=== PATIENT | male | born 1955 | race Caucasian/White ===

== ENCOUNTER 2018-02-16 08:51 | Outpatient (CLI) | payer BC, SELFPAY ==
[2018-02-16 11:51] LABS: Anion Gap 12.7 mmol/L (3-11); BUN 10 mg/dL (7-18); CO2 24.3 mmol/L (21.0-32.0); CREATININE 0.84 mg/dL (0.70-1.30); Calcium 8.7 mg/dL (8.5-10.1); Chloride 104 mmol/L (98-107); Glucose 97 mg/dL (70-100); Potassium 4.2 mmol/L (3.5-5.1); Sodium 141 mmol/L (136-145)
[2018-02-19 14:44] LABS: Hepatitis C Ab w Rflx HCV PCR Negative (NEGAT)
== END 2018-02-16 09:11 ==
PROVIDERS: PCP Specialist/Technologist Athletic Trainer; Visit Provider Family Medicine
DX: Z11.59 Encounter for screening for other viral diseases (principal); J44.9 Chronic obstructive pulmonary disease, unspecified
CPT/HCPCS: 36415; 80048; 86803

== ENCOUNTER 2019-03-07 09:46 | Outpatient (REF) | payer BC, SELFPAY ==
[2019-03-07 22:28] LABS: Hemoglobin A1C 5.7 % (4.5-6.2)
[2019-03-07 22:37] LABS: ALT 28 U/L (16-63); AST 19 U/L (15-37); Albumin 3.7 g/dL (3.4-5.0); Alkaline Phosphatase 105 U/L (46-116); Anion Gap 8.8 mmol/L (3-11); BUN 14 mg/dL (7-18); Bilirubin, Total 0.3 mg/dL (0.2-1.0); CO2 27.2 mmol/L (21.0-32.0); CREATININE 1.04 mg/dL (0.70-1.30); Calcium 8.7 mg/dL (8.5-10.1); Calculated LDL 105 mg/dL; Chloride 105 mmol/L (98-107); Cholesterol 194 mg/dL (50-200); Glucose 107 mg/dL (70-100); HDL Cholesterol 45 mg/dL (40-60); Potassium 4.2 mmol/L (3.5-5.1); Sodium 141 mmol/L (136-145); Triglyceride 224 mg/dL (30-150)
== END 2019-03-07 10:06 ==
LOC: NCHCO 09:46
PROVIDERS: PCP Specialist/Technologist Athletic Trainer; Visit Provider Specialist/Technologist Athletic Trainer
DX: Z00.00 Encounter for general adult medical examination without abnormal findings (principal); Z13.1 Encounter for screening for diabetes mellitus; Z13.220 Encounter for screening for lipoid disorders; Z13.228 Encounter for screening for other metabolic disorders
CPT/HCPCS: 80053; 80061; 83036

== ENCOUNTER 2020-03-04 09:45 | Outpatient (REF) | payer BC, SELFPAY ==
[2020-03-04 20:27] LABS: Calculated LDL 121 mg/dL (<100); Cholesterol 201 mg/dL (<200); HDL Cholesterol 48 mg/dL (40-60); Triglyceride 162 mg/dL (<150)
[2020-03-04 20:43] LABS: Hemoglobin A1C 5.4 % (<5.7)
== END 2020-03-04 10:05 ==
LOC: NCHCN 09:45
PROVIDERS: PCP Specialist/Technologist Athletic Trainer; Visit Provider Nurse Practitioner Family
DX: R73.03 Prediabetes (principal); E78.00 Pure hypercholesterolemia, unspecified
CPT/HCPCS: 80061; 83036

== ENCOUNTER 2020-03-17 01:05 | Outpatient (CLI) | payer BC, SELFPAY ==
--- NOTE | 2020-03-17 07:17 | DI.CTLCSR_ITS ---
EXAM: CT CHEST LUNG CANCER SCREEN CLINICAL HISTORY: SMOKER, F17.210, SCREENING FOR LUNG CA TECHNIQUE: Imaging Protocol: Axial computed tomography images with coronal and sagittal reformatted images were created and reviewed COMPARISON: No exams were available for comparison FINDINGS: Tracheobronchial tree: Patent where visualized. Mediastinum and Jhoana: No dominant adenopathy or fluid collection. Pulmonary parenchyma: No consolidation or dominant measurable mass. Moderate emphysematous changes gr eatest in the upper lobes. Biapical scarring. Lung Nodules: Several tiny, less than 4 millimeter nodules are seen peripherally in both upper and l ower lobes bilaterally. Pleura: No effusion or pneumothorax. Heart: The heart is not dilated. No coronary artery calcifications are seen. Aorta: Thoracic aorta non-dilated. Upper abdomen: Unremarkable. Status post cholecystectomy. Bones: Degenerative disc changes. Soft Tissues: Unremarkable. IMPRESSION: Emphysematous changes and upper lobe scarring. Multiple less than 4 millimeter peripheral nodules bi laterally. Lung RADS Cat 2 - Benign Appearance / Behavior: Nodules with a very low likelihood of becoming a clin ically active cancer due to size or lack of growth modifier S Lung-RADS 1.0 CATEGORIES: Category 0 - Prior chest CT exam(s) being located for comparison. Category 1 - Annual screening in 12 months. No nodules or definitely benign nodules. Category 2 - Annual screening in 12 months. Benign appearance. Nodules with low likelihood of becomin g active cancer. Category 3 - 6-month follow-up. Probably benign. Short-term follow-up suggested. Nodules with low lik elihood of becoming active cancer. Category 4A - 3-month follow-up and CT/PET if >8 mm in size. Suspicious finding. Findings which requi re additional testing. Category 4B - Findings which require additional testing and tissue sampling. Suspicious finding. C Added to Any of the Above - History of prior lung cancer screening. S Added to Any of the Above - Significant unexpected other finding. RADIATION DOSE DELIVERED: 108.8mGy.cm Total DLP DATA REPOSITORY: All CT scans at this facility are submitted to the National Radiology Data Registry (NRDR) Dose Index Registry (DIR) with the [employer] (ACR). RADIATION OPTIMIZATION: All CT scans at this facility use at least one of these dose optimization te chniques: automated exposure control; mA and/or kV adjustment per patient size (includes targeted exa ms where dose is matched to clinical indication); or iterative reconstruction.
== END 2020-03-17 01:25 ==
PROVIDERS: PCP Nurse Practitioner Family; Visit Provider Nurse Practitioner Family
DX: Z12.2 Encounter for screening for malignant neoplasm of respiratory organs (principal); F17.210 Nicotine dependence, cigarettes, uncomplicated; R91.8 Other nonspecific abnormal finding of lung field
CPT/HCPCS: G0297

== ENCOUNTER 2020-05-11 10:01 | Outpatient (REF) | payer BC, SELFPAY ==
[2020-05-11 20:10] LABS: Calculated LDL 95 mg/dL (<100); Cholesterol 185 mg/dL (<200); HDL Cholesterol 57 mg/dL (40-60); Triglyceride 166 mg/dL (<150)
== END 2020-05-11 10:21 ==
LOC: NCHCN 10:01
PROVIDERS: PCP Nurse Practitioner Family; Visit Provider Nurse Practitioner Family
DX: E78.00 Pure hypercholesterolemia, unspecified (principal)
CPT/HCPCS: 80061

== ENCOUNTER 2020-09-22 02:54 | Outpatient (CLI) | payer BC, SELFPAY ==
[2020-09-22] MEDS: Methacholine 100 MG VIAL IH (12:17)
[2020-09-22] MEDS: Albuterol HFA 18 GM 200 PUFF INH IH (12:18)
[2020-09-22] MEDS: Inhaler, Assist Device 1 EACH MC (12:18)
--- NOTE | 2020-09-28 15:52 | W.PFT ---
Date of service: 09/22/20 Time of Service: 10:05 Pulmonary Function Test Result Interpretation Spirometry: Mild obstructive airways disease, no bronchodilator response Lung Volumes: No evidence of restriction Diffusion Capacity: Moderately reduced, which is mildly reduced when corrected to alveolar volume Airway Pressure: Normal Impression Mild obstructive airways disease with no significant bronchodilator response, this is associated with moderate diffusion defect Clinical Correlation therefore is recommended. Methacholine Challnege Test Date of Service Date of Service: 09/22/2020 Note After pulmonary function testing showing mild obstructive airways disease with moderate diffusion defect, methacholine challenge testing was carried out up to methacholine concentration of 16 mg/mL. At that concentration there was a 12% drop in FEV1. Impression Negative methacholine challenge test
== END 2020-09-22 02:55 | disposition home or self-care (01) ==
LOC: RT 02:55
PROVIDERS: PCP Nurse Practitioner Family; Visit Provider Nurse Practitioner Family
DX: J43.9 Emphysema, unspecified; R06.09 Other forms of dyspnea; F17.210 Nicotine dependence, cigarettes, uncomplicated; Z77.29 Contact with and (suspected) exposure to other hazardous substances
CPT/HCPCS: 94060; 94726; 94729; 95070; 94010; J7674

== ENCOUNTER 2020-10-12 11:33 | Outpatient (REF) | payer BC, SELFPAY ==
[2020-10-12 16:42] LABS: Anion Gap 10.4 mmol/L (3-11); BUN 15 mg/dL (7-18); CO2 25.6 mmol/L (21.0-32.0); CREATININE 1.1 mg/dL (0.70-1.30); Calcium 8.7 mg/dL (8.5-10.1); Chloride 107 mmol/L (98-107); Glucose 97 mg/dL (74-106); Potassium 4.3 mmol/L (3.5-5.1); Sodium 143 mmol/L (136-145)
== END 2020-10-12 11:34 | disposition home or self-care (01) ==
LOC: NCHCN 11:33
PROVIDERS: PCP Nurse Practitioner Family; Visit Provider Nurse Practitioner Family
DX: R73.03 Prediabetes (principal); F17.200 Nicotine dependence, unspecified, uncomplicated
CPT/HCPCS: 80048

== ENCOUNTER 2021-05-11 09:37 | Outpatient (REF) | payer BC, SELFPAY ==
[2021-05-11 15:21] LABS: Calculated LDL 109 mg/dL (<100); Cholesterol 198 mg/dL (<200); HDL Cholesterol 53 mg/dL (40-60); Triglyceride 182 mg/dL (<150)
== END 2021-05-11 09:38 | disposition home or self-care (01) ==
LOC: NCHCN 09:37
PROVIDERS: PCP Nurse Practitioner Family; Visit Provider Nurse Practitioner Family
DX: Z00.00 Encounter for general adult medical examination without abnormal findings (principal)
CPT/HCPCS: 80061

== ENCOUNTER → 2021-07-01 08:53 | Outpatient (BNVA) | payer MEDICARE, SELFPAY | PROVIDERS: PCP Nurse Practitioner Family; Referring Provider Nurse Practitioner Family; Visit Provider Physical Therapy Assistant | DX: K21.9 Gastro-esophageal reflux disease without esophagitis (principal); K22.89 Other specified disease of esophagus; Z12.11 Encounter for screening for malignant neoplasm of colon; Z80.0 Family history of malignant neoplasm of digestive organs; J44.9 Chronic obstructive pulmonary disease, unspecified | CPT/HCPCS: 99203 ==

== ENCOUNTER 2021-08-25 12:45 | Outpatient (REF) | payer MEDICARE, SELFPAY ==
[2021-08-25 12:19] LABS: BUN 23 mg/dL (7-18); CREATININE 0.9 mg/dL (0.70-1.30); Calcium 8.9 mg/dL (8.5-10.1); Chloride 104 mmol/L (98-107); Glucose 97 mg/dL (74-106); Potassium 4.5 mmol/L (3.5-5.1); Sodium 139 mmol/L (136-145)
== END 2021-08-25 12:46 | disposition home or self-care (01) ==
LOC: NCHCN 12:45
PROVIDERS: PCP Nurse Practitioner Family; Visit Provider Nurse Practitioner Family
DX: I10 Essential (primary) hypertension (principal)
CPT/HCPCS: 80048

== ENCOUNTER → 2022-05-31 02:07 | Outpatient (CLI) | payer MEDICARE, SELFPAY ==
--- NOTE | 2022-05-31 10:37 | DI.CTLCSR_ITS ---
Exam(s) CT CHEST LUNG CANCER SCREEN EXAM: CT CHEST LUNG CANCER SCREEN CLINICAL HISTORY: SMOKER F17.210, SCREENING FOR LUNG CANCER Z12.9. TECHNIQUE: Imaging Protocol: Low Dose Technique CONTRAST MATERIAL: None COMPARISON: CT CT CHEST LUNG CANCER SCREEN from 03/17/[address] CHEST LUNG CANCER SCREEN from 05/25/2021 FINDINGS: CHEST: LUNGS: There is continued stable appearance of the previously described tiny benign-appearing nodules in the lung cook. Some platelike atelectasis in the right lower lobe posterior basal segment is u nchanged. There are no pleural effusions. No new confluent infiltrates MEDIASTINUM: There is no obvious hilar nor mediastinal adenopathy. CARDIAC: Heart size is normal. There is no pericardial effusion.Caliber of the thoracic aorta is wit hin normal limits. OTHER: No adrenal masses. Gallbladder surgically absent. OSSEOUS: No fractures. No significant osseous lesions.. IMPRESSION: 1. Continued stable appearance of the previously described tiny bilateral lung nodules. No new focal pulmonary findings nor pleural effusions. 2. There is circumferential diffuse thickening of the wall of the esophagus throughout the mid and lo wer thirds. The wall of the esophagus measures 5 millimeters thick circumferentially. Recommend end oscopy in this has not already been. 3. Lung RADS Cat 2S - Benign Appearance / Behavior: Nodules with a very low likelihood of becoming a clinically active cancer due to size or lack of growth Esophagus findings as above. Recommend endoscopy. Lung-RADS 1.0 CATEGORIES: Category 0 - Prior chest CT exam(s) being located for comparison. Category 1 - Annual screening in 12 months. No nodules or definitely benign nodules. Category 2 - Annual screening in 12 months. Benign appearance. Nodules with low likelihood of becomin g active cancer. Category 3 - 6-month follow-up. Probably benign. Short-term follow-up suggested. Nodules with low lik elihood of becoming active cancer. Category 4A - 3-month follow-up and CT/PET if >8 mm in size. Suspicious finding. Findings which requi re additional testing. Category 4B - Findings which require additional testing and tissue sampling. Category 4X - Category 3 or 4 nodules with additional features or imaging findings that increases the suspicion of malignancy. Modifier S- Potentially clinically significant findings (non lung cancer) RADIATION DOSE DELIVERED: 97.82mGy.cm Total DLP DATA REPOSITORY: All CT scans at this facility are submitted to the National Radiology Data Registry (NRDR) Dose Index Registry (DIR) with the [employer] (ACR). RADIATION OPTIMIZATION: All CT scans at this facility use at least one of these dose optimization te chniques: automated exposure control; mA and/or kV adjustment per patient size (includes targeted exa ms where dose is matched to clinical indication); or iterative reconstruction.
== END ==
PROVIDERS: PCP Nurse Practitioner Family; Visit Provider Nurse Practitioner Family
DX: F17.210 Nicotine dependence, cigarettes, uncomplicated (principal); Z12.2 Encounter for screening for malignant neoplasm of respiratory organs; R91.8 Other nonspecific abnormal finding of lung field
CPT/HCPCS: 71271

== ENCOUNTER 2022-05-31 12:14 | Outpatient (REF) | payer MEDICARE, SELFPAY ==
[2022-05-31 16:20] LABS: ALT 21 U/L (16-63); AST 18 U/L (15-37); HDL Cholesterol 56 mg/dL (40-60); LDL CHOLESTEROL 100 mg/dL (<100)
[2022-05-31 16:41] LABS: Creatine Kinase 41 U/L (39-308)
== END 2022-05-31 12:15 | disposition home or self-care (01) ==
LOC: NCHCN 12:14
PROVIDERS: PCP Nurse Practitioner Family; Visit Provider Nurse Practitioner Family
DX: I10 Essential (primary) hypertension (principal); J43.9 Emphysema, unspecified; F17.200 Nicotine dependence, unspecified, uncomplicated
CPT/HCPCS: 82550; 83721; 83718; 84450; 84460

== ENCOUNTER 2022-08-29 10:23 | Outpatient (REF) | payer MEDICARE, SELFPAY ==
[2022-08-29 16:33] LABS: Anion Gap 8.5 mmol/L (3-11); BUN 19 mg/dL (7-18); CO2 24.5 mmol/L (21.0-32.0); CREATININE 1.2 mg/dL (0.70-1.30); Calcium 8.7 mg/dL (8.5-10.1); Chloride 106 mmol/L (98-107); Glucose 107 mg/dL (74-106); Potassium 4.5 mmol/L (3.5-5.1); Sodium 139 mmol/L (136-145)
== END 2022-08-29 10:24 | disposition home or self-care (01) ==
LOC: NCHCN 10:23
PROVIDERS: PCP Nurse Practitioner Family; Visit Provider Nurse Practitioner Family
DX: I10 Essential (primary) hypertension (principal)
CPT/HCPCS: 80048

== ENCOUNTER 2023-02-27 13:01 | Outpatient (REF) | payer MEDICARE, SELFPAY ==
[2023-02-27 18:20] LABS: ALT 26 U/L (16-63); AST 14 U/L (15-37); Albumin 3.5 g/dL (3.4-5.0); Alkaline Phosphatase 76 U/L (46-116); Anion Gap 10.3 mmol/L (3-11); BUN 16 mg/dL (7-18); Bilirubin, Total 0.3 mg/dL (0.2-1.0); CO2 24.7 mmol/L (21.0-32.0); CREATININE 0.7 mg/dL (0.70-1.30); Chloride 105 mmol/L (98-107); Estimated GFR 101.62 (mL/min/1.73m2); Glucose 129 mg/dL (74-106); HDL Cholesterol 65 mg/dL (40-60); LDL CHOLESTEROL 63 mg/dL (<100); Potassium 3.6 mmol/L (3.5-5.1); Sodium 140 mmol/L (136-145); Total Protein 6.9 g/dL (6.4-8.2)
[2023-02-27 19:14] LABS: Creatine Kinase 52 U/L (39-308)
== END 2023-02-27 13:02 | disposition home or self-care (01) ==
LOC: NCHCN 13:01
PROVIDERS: PCP Nurse Practitioner Family; Visit Provider Nurse Practitioner Family
DX: I10 Essential (primary) hypertension (principal); E78.00 Pure hypercholesterolemia, unspecified
CPT/HCPCS: 80053; 82550; 83721; 83718

== ENCOUNTER → 2023-06-02 01:45 | Outpatient (CLI) | payer MEDICARE, SELFPAY ==
--- NOTE | 2023-06-02 | DI.CTLCSR_ITS ---
Exam(s) CT CHEST LUNG CANCER SCREEN EXAM: CT CHEST LUNG CANCER SCREEN CLINICAL HISTORY: SCREENING FOR LUNG CA,CURRENT SMOKER, F17.210. TECHNIQUE: Imaging Protocol: Low Dose Technique CONTRAST MATERIAL: None COMPARISON: CT CT CHEST LUNG CANCER SCREEN from 05/31/2022 FINDINGS: CHEST: LUNGS: There is again noted continued stable appearance of the previously described tiny benign-appea ring nodules in the lung cook.. With some mild increase benign-appearing scarring in the posterior basal and medial basal segments of the right lower lobe. Also some decreasing platelike atelectasis in both lower lobes posterior basal segments. No pleural effusions. MEDIASTINUM: There is no obvious hilar nor mediastinal adenopathy. As previously described the wall of the esophagus is circumferentially thickened throughout its length.. CARDIAC: Heart size is normal. There is no pericardial effusion.Caliber of the thoracic aorta is wit hin normal limits. OTHER: Gallbladder surgically absent. OSSEOUS: No significant osseous lesions.No fractures.. IMPRESSION: 1. Continued stable appearance of the previously described tiny bilateral lung nodules. No new nodul es nor pleural effusions nor intrathoracic adenopathy. 2. Again noted is circumferential thickening of the esophagus wall throughout the mid and lower third s of the esophagus. Recommend endoscopy if this has not already been done. 3. Lung RADS Cat 2S- Benign Appearance / Behavior: Nodules with a very low likelihood of becoming a c linically active cancer due to size or lack of growth S= esophagus findings Lung-RADS 1.0 CATEGORIES: Category 0 - Prior chest CT exam(s) being located for comparison. Category 1 - Annual screening in 12 months. No nodules or definitely benign nodules. Category 2 - Annual screening in 12 months. Benign appearance. Nodules with low likelihood of becomin g active cancer. Category 3 - 6-month follow-up. Probably benign. Short-term follow-up suggested. Nodules with low lik elihood of becoming active cancer. Category 4A - 3-month follow-up and CT/PET if >8 mm in size. Suspicious finding. Findings which requi re additional testing. Category 4B - Findings which require additional testing and tissue sampling. Category 4X - Category 3 or 4 nodules with additional features or imaging findings that increases the suspicion of malignancy. Modifier S- Potentially clinically significant findings (non lung cancer) RADIATION DOSE DELIVERED: Total DLP DATA REPOSITORY: All CT scans at this facility are submitted to the National Radiology Data Registry (NRDR) Dose Index Registry (DIR) with the [employer] (ACR). RADIATION OPTIMIZATION: All CT scans at this facility use at least one of these dose optimization te chniques: automated exposure control; mA and/or kV adjustment per patient size (includes targeted exa ms where dose is matched to clinical indication); or iterative reconstruction.
== END ==
PROVIDERS: PCP Nurse Practitioner Family; Visit Provider Nurse Practitioner Family
DX: F17.210 Nicotine dependence, cigarettes, uncomplicated (principal); Z12.2 Encounter for screening for malignant neoplasm of respiratory organs; R91.8 Other nonspecific abnormal finding of lung field
CPT/HCPCS: 71271

== ENCOUNTER 2023-08-28 09:15 | Outpatient (REF) | payer MEDICARE, SELFPAY ==
[2023-08-28 17:42] LABS: Hemoglobin A1C 5.9 % (<5.7)
[2023-08-29 20:01] LABS: PSA, Diagnostic 2.1 ng/mL (<=4.5)
== END 2023-08-28 09:16 | disposition home or self-care (01) ==
LOC: NCHCN 09:15
PROVIDERS: PCP Nurse Practitioner Family; Visit Provider Nurse Practitioner Family
DX: Z80.42 Family history of malignant neoplasm of prostate (principal); R73.01 Impaired fasting glucose
CPT/HCPCS: 83036; 84153

== ENCOUNTER 2024-02-01 02:33 | Outpatient (CLI) | payer MEDICARE, SELFPAY ==
--- NOTE | 2024-02-01 08:21 | DI.CT_ITS ---
Exam(s) CT HEAD WO EXAM: CT HEAD WO CLINICAL HISTORY: HEADACHE, R51.9. TECHNIQUE: Imaging Protocol: Axial computed tomography images with coronal and sagittal reformatted images were created and reviewed COMPARISON: No exams were available for comparison FINDINGS: Ventricles and Extra axial spaces: Normal in size and morphology for the patient's age. Hemorrhage: None. Cerebral parenchyma: No evidence of acute infarct or mass. Mild atrophy. Midline shift: None. Brainstem/Cerebellum: Normal. Calvarium: Normal. Visualized Paranasal sinuses:Mucosal thickening of ethmoid sinuses. Mastoids: Clear. Soft Tissues: Unremarkable. ORBITS: Unremarkable. PITUITARY: Not enlarged. IMPRESSION: No acute intracranial process. RADIATION DOSE DELIVERED: 850.01mGy.cm Total DLP DATA REPOSITORY: All CT scans at this facility are submitted to the National Radiology Data Registry (NRDR) Dose Index Registry (DIR) with the [employer] (ACR). RADIATION OPTIMIZATION: All CT scans at this facility use at least one of these dose optimization te chniques: automated exposure control; mA and/or kV adjustment per patient size (includes targeted exa ms where dose is matched to clinical indication); or iterative reconstruction.
== END 2024-02-01 02:53 ==
PROVIDERS: PCP Nurse Practitioner Family; Visit Provider Nurse Practitioner Family
DX: R51.9 Headache, unspecified (principal)
CPT/HCPCS: 70450

== ENCOUNTER 2024-02-29 16:23 | Outpatient (REF) | payer MEDICARE, SELFPAY ==
[2024-02-29 19:45] LABS: Hemoglobin A1C 5.6 % (<5.7)
[2024-02-29 20:10] LABS: ALT 26 U/L (16-63); AST 22 U/L (15-37); Albumin 3.8 g/dL (3.4-5.0); Alkaline Phosphatase 95 U/L (46-116); Anion Gap 9.9 mmol/L (3-11); BUN 21 mg/dL (7-18); Bilirubin, Total 0.25 mg/dL (0.2-1.0); CO2 24.1 mmol/L (21.0-32.0); CREATININE 0.9 mg/dL (0.70-1.30); Calcium 9.3 mg/dL (8.5-10.1); Calculated LDL 77 mg/dL (<100); Chloride 105 mmol/L (98-107); Cholesterol 175 mg/dL (<200); Estimated GFR 93.61 (mL/min/1.73m2); Glucose 92 mg/dL (74-106); HDL Cholesterol 67 mg/dL (40-60); Potassium 4.1 mmol/L (3.5-5.1); Sodium 139 mmol/L (136-145); Total Protein 7.4 g/dL (6.4-8.2); Triglyceride 159 mg/dL (<150)
== END 2024-02-29 16:24 | disposition home or self-care (01) ==
LOC: NCHCN 16:23
PROVIDERS: PCP Nurse Practitioner Family; Visit Provider Nurse Practitioner Family
DX: E78.00 Pure hypercholesterolemia, unspecified (principal); R73.03 Prediabetes
CPT/HCPCS: 80053; 80061; 83036

== ENCOUNTER 2024-03-19 01:40 | Outpatient (CLI) | payer MEDICARE, SELFPAY ==
--- NOTE | 2024-03-19 | DI.US_ITS ---
Exam(s) US AAA SCREENING EXAM: US AAA SCREENING CLINICAL HISTORY: VASCULAR DISORDER, I99.9, DISORDER CIRCULATORY SYSTEM, SCREENING AAA COMPARISON: CT ABD PELVIS WITH CONTRAST from 11/10/2010 FINDINGS: Abdominal Aorta: Proximal: 2.5 x 2.5 cm Mid: 2.2 x 2.2 cm Distal: 1.9 x 1.9 cm Iliac's: Right: 1.1 x 1.1 cm Left: 1.1 x 1.1 cm No significant atherosclerotic disease is seen. IMPRESSION: No evidence of abdominal aortic aneurysm. DATA REPOSITORY:
== END 2024-03-19 02:00 ==
LOC: DI 01:41
PROVIDERS: PCP Nurse Practitioner Family; Visit Provider Nurse Practitioner Family
DX: Z13.6 Encounter for screening for cardiovascular disorders (principal)
CPT/HCPCS: 76706

== ENCOUNTER → 2024-04-25 10:37 | Outpatient (BNVA) | payer MEDICARE, SELFPAY | PROVIDERS: PCP Nurse Practitioner Family; Referring Provider Nurse Practitioner Family; Visit Provider Physical Therapy Assistant | DX: K21.9 Gastro-esophageal reflux disease without esophagitis (principal); K22.89 Other specified disease of esophagus; Z80.0 Family history of malignant neoplasm of digestive organs | CPT/HCPCS: 99214 ==

== ENCOUNTER 2024-05-17 07:46 | Day surgery (SDC) | payer MEDICARE, SELFPAY ==
--- NOTE | 2024-05-16 14:50 | PDOC.DSDIS_ITS ---
Date of service: 05/17/24 Discharge Plan Disposition Patient Disposition: Home Condition: Good Discharge Details Reason For Visit: EGD and colonoscopy Attending Provider: Mat Robles Primary Care Provider: Latha Colón Home Meds and New Rx's Prescriptions: Continued coenzyme Q10 [Co Q-10] 10 mg capsule 10 mg PO ONCE aspirin [Aspir-81] 81 MG tablet,delayed release (DR/EC) 81 mg PO DAILY Spiriva Respimat 1.25 mcg/actuation mist 2 puff inhalation DAILY atorvastatin 10 mg tablet 10 mg PO QHS fluticasone propionate [Flonase Allergy Relief] 50 mcg/actuation spray,suspension 1 spray intranasal DAILY Rx Instructions: administer into each nostril lisinopril 10 mg tablet 10 mg PO DAILY albuterol sulfate [Ventolin HFA] 90 mcg/actuation HFA aerosol inhaler 2 puff inhalation Q6H PRN Zyrtec 10 mg capsule 10 mg PO DAILY PRN Discontinued bisacodyl [Dulcolax (bisacodyl)] 5 mg tablet,delayed release (DR/EC) 5 mg PO ONCE Qty: 4 0RF Rx Instructions: Take per colonoscopy instructions provided by ordering providers office polyethylene glycol 3350 17 gram/dose powder 17 g PO ONCE Qty: 238 0RF Rx Instructions: Take per colonoscopy instructions provided by ordering providers office Discharge Instructions Instructions: Gastritis, Colon polyps, Diverticulosis Additional Instructions: Demetrius is very nice meeting you today, and I hope you are comfortable throughout the procedure. Everything went very smoothly. With regards to your upper endoscopy, the abnormal area seen on the CT scan actually looks fairly normal. I did do some biopsies of this tissue to make sure that there is nothing going on here that is not apparent by naked eye. However, you do have some abnormalities in the bottom part of your stomach as it connects onto your small intestine, and most importantly, in the first portion of your small intestine which is also known as the duodenum. There appeared to be some changes in the bottom part of the stomach that look most like ulcer disease, although there are some features of the tissue that seem concerning for polyps. I did multiple biopsies of this, as well as other parts of your stomach. And there are innumerable polyps within your duodenum. Certainly, this is not something that I can treat with a camera during this procedure here today. Although technically some of these could be removed with a camera, I do not think it would to treat the entire area. And since these types of polyps do have a risk of evolving into cancer, I do think treatment is important. I am going to refer you down to [facility] to meet with her gastroenterology specialist. I will certainly provide pictures, and the results of all the biopsies for that referral, and I do think it is worth getting their opinion. It may also be the case that they would refer you to a specialty surgeon down there for excision of this area. I do not see any of this to alarm you, but I do want you to know that you may be meeting with a few different specialist. With regards to your colonoscopy, I found and removed 5 polyps today. None of these look particularly worrisome. These will all be tested since polyps, and different varieties, and the risks associated with colon cancer varies between them. We use the information from the type of polyp that is detected to gauge the timing of your next colonoscopy. 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 1. If tolerated, consume a soft, low fiber diet for 1-2 days. 2[address] Do not drive, drink alcohol, operate machinery, make critical decisions, or do activities that require coordination or balance for 24 hours. 3. Because air was put into your colon during the procedure, expelling air from your rectum (passing gas or farting) is normal. 4. You may not have a bowel movement for 1-3 days because of the colonoscopy prep. This is normal. 5. You may experience a sore throat for 24 to 48 hours. You may use throat lozenges or gargle with warm salt water to relieve the discomfort. 6. Because air was put into your stomach during the procedure, you may experience some belching. 7. Go directly to the emergency room if you notice any of the following: Develop chills (warm to touch), or if you have a thermometer and your temperature is above 101 Difficulty breathing or difficultly swallowing Persistent vomiting Severe abdominal pain, other than gas cramps Severe chest pain Black, tarry stools Any bleeding ? exceeding one tablespoon 8. Call your physician if the site where your intravenous was started becomes red, swollen, painful, and warm to touch. 9. Your physician has reviewed your pre-procedure medications. Please continue to take those medications as previously ordered. You will be given specific information/education regarding any changes to your medications before leaving. Stand Alone Forms: Anesthesia Discharge InstPieter Puri (DSU) Activity:: Activity as Tolerated Diet:: As Tolerated Discharge Orders Discharge Orders: Discharge Order (Routine); Ordered 05/16/24 Ordered By: Mat Robles DS: Diagnosis Discharge Diagnosis (1) Encounter for screening colonoscopy: Status: Acute Asessment and Plan: Follow-up on polypectomy and biopsy results; will need referral down to [facility] for duodenal polyposis
--- NOTE | 2024-05-16 14:51 | ENDO_ITS ---
Date of service: 05/17/24 Time of Service: 10:56 Endoscopy Report DATE OF PROCEDURE: 05/17/24 PRE-OP DIAGNOSIS: esophageal thickening and screening colonoscopy POST-OP DIAGNOSIS: other (Gastritis, duodenitis, duodenal polyposis; diverticulosis, colon polyps) PROCEDURE: EGD with biopsies, colonoscopy with SURGEON: Mat Robles ANESTHESIA TYPE: General:No Airway ESTIMATED BLOOD LOSS: 15 PATHOLOGY: other (Biopsies of duodenal polyps, random biopsies of gastric antrum and body, biopsies of GE junction, random biopsies of distal esophagus; cecal polyps, 0.25 cm polyp at 90 cm from the anus, 0.25 cm polyp at 70 cm from the anus x 2) COMPLICATIONS: None DISPOSITION: same day INDICATIONS: Demetrius is a 68-year-old male with a family history of colon cancer is overdue for screening colonoscopy. He also has distal esophageal thickening seen on his CT scan, he was advised to undergo diagnostic EGD PREP: Miralax/Dulcolax PROCEDURE START TIME: 10:06 PROCEDURE END TIME: 10:40 COLONOSCOPY RETRACTION TIME: 15 FINDINGS: Normal-appearing distal esophagus, mild irregularity of the Z-line at 40 cm from the incisors, antral gastritis, duodenitis, duodenal polyposis; diverticulosis, colon polyps PROCEDURE DESCRIPTION: After the initiation of anesthesia, and with the assistance of a bite block, I advanced a standard gastroscope through the mouth past the hypopharynx and into the esophagus.? Under the direct vision of the scope, I advanced down the esophagus towards the stomach.? The upper, mid, and lower esophagus were all normal-appearing. I did not see any evidence of esophagitis, narrowing, or any mucosal abnormalities. Narrowband imaging was used to assist with the analysis. There was mild irregularity of the GE junction at the Z-line measuring 40 cm from the incisors. Cold forceps biopsies were performed here. Cold forceps biopsies of the distal esophagus were also performed in light of the esophageal thickening seen on the CT scan. There is minimal bleeding from the biopsy sites. I advanced the camera down into the stomach and perform retroflexion. There may be a small hiatal hernia, but this is a little difficult to see. The stomach was insufflated into the rugae were obliterated. There was a little bit of antral gastritis, as well as some antral polyps that were mostly flat and linear. I was able to advance through the pylorus into the duodenum. The duodenal bulb was a little bit friable and irritated. There was marked polyposis of the distal portion of the duodenal bulb as it extended into the first and second portions of the duodenum. Majority these polyps were between 0.25 and 0.5 cm in size. I was able to advance down to about the third portion of the duodenum, which seems spared. Although there is some erythema of the mucosa down here. Given the extent of the polyposis, I did not think it would be safe to attempt a formal polypectomy. Biopsies were performed of random sample of the polyps. This was done with cold forceps with minimal bleeding. I then brought the camera back up into the stomach and biopsied the antral polyps as well as nondirected biopsies of the gastric antrum and body to rule out Helicobacter pylori. All biopsies during the EGD were performed with cold forceps with no bleeding complications. The stomach was then emptied, and the camera was brought back out along the length of the esophagus 1 last time. Next, we rolled Demetrius into the left lateral decubitus position. Great care was taken to make sure that he was padded and supported appropriately. I began by performing an external anorectal exam.? Perineum and skin were normal, as was the anal verge.? There was no no evidence of external hemorrhoids.? Next, I performed a digital rectal exam.? I did not appreciate any abnormal findings.? Next, I advanced a colonoscope into the rectal vault.? I performed retroflexion.? This appeared normal using insufflation, I then advanced the colonoscope beyond the rectal folds and into the sigmoid colon before advancing towards the cecum.? The scope was noted to be in the cecum by identification of the ileocecal valve and appendiceal orifice. In the bottom portion of the cecum were 2 polyps. These were slightly pedunculated. Each of these was about 0.25 cm, and both were excised with cold snare polypectomy. I then began withdrawing the colonoscope using repeated irrigation as necessary for full evaluation of the colonic mucosa. I found another polyp at 90 cm from the anal verge. This was also about 0.25 cm in size. This was also slightly pedunculated and removed with snare polypectomy.? 2 more 0.25 cm polyps were found around 70 cm from the anal verge. These were removed with cold forceps without any difficulty. ?Once the scope was withdrawn to the level of the rectum, great care was taken to examine portions of the rectal folds.? Finally, the scope was withdrawn and the patient was brought to the same-day surgery recovery unit as the anesthetic wore off. ?The findings and instructions were shared with the patient prior to discharge. The [place] bowel prep score from right to left was 3, 3, 3
[2024-05-17 08:33] VITALS: BP 128/77; PULSE 71; RESP 16; TEMP 36.4; O2SAT 95
[2024-05-17] MEDS: Normal Saline Flush 10 ML SYR IV (08:55)
--- NOTE | 2024-05-17 09:50 | W.ANESPRE ---
General Info Date of Service Date Performed: 05/17/24 Height: 5 ft 11 in Weight: 103.3 kg Body Mass Index (BMI): 31.7 Surgical Procedure: Operation Date: 05/17/24 09:50 Proposed Procedure Side Surgeon p Colonoscopy/Gastroscopy Mat Robles MD Meds Allergies and Home Medications Allergies Allergy/AdvReac Type Severity Reaction Status Date / Time No Known Allergies Allergy Verified 05/17/24 08:46 Home Medication ?Medication ?Instructions ?Recorded aspirin 81 mg tablet,delayed 81 mg PO DAILY 11/16/12 release (Aspir-) atorvastatin 10 mg tablet 10 mg PO QHS 06/29/21 tiotropium bromide 1.25 2 puff inhalation DAILY 06/29/21 mcg/actuation mist for inhalation (Spiriva Respimat) coenzyme Q10 10 mg capsule (Co 10 mg PO ONCE 07/01/21 Q-10) albuterol sulfate 90 mcg/actuation 2 puff inhalation Q6H PRN 10/18/23 aerosol inhaler (Ventolin HFA) fluticasone propionate 50 1 spray intranasal DAILY 10/18/23 mcg/actuation nasal spray,suspension (Flonase Allergy Relief) lisinopril 10 mg tablet 10 mg PO DAILY 10/18/23 cetirizine 10 mg capsule (Zyrtec) 10 mg PO DAILY PRN 04/02/24 Current Visit Medications: Current Medications Generic Name Dose Route Start Last Admin Trade Name Freq PRN Reason Stop Dose Admin IV Miscellaneous Supplies 1 each 05/17/24 06:00 Iv Access IV 05/17/24 23:59 DIRECTED VITO Ondansetron HCl 4 mg 05/16/24 14:49 Ondansetron 4 Mg/2 Ml Vial IVP 06/15/24 14:48 Q4H PRN PRN Nausea / Vomiting Sodium Chloride 0 ml 05/17/24 06:00 05/17/24 08:55 Normal Saline Flush 10 Ml Syr IV 05/17/24 23:59 10 ml PRN PRN Administration Sodium Chloride 0 ml 05/17/24 06:00 Normal Saline 10 Ml Vial IJ 05/17/24 23:59 DIRECTED PRN Sterile Water 0 ml 05/17/24 06:00 Water,Injection,Sterile 10 Ml Vial IJ 05/17/24 23:59 DIRECTED PRN PFSH Active Problems Active Problems: Problem Status Onset Code Encounter for screening colonoscopy Acute Z12.11 Headache Acute R51.9 Ethmoidal sinusitis Acute J32.2 Nasal turbinate hypertrophy Acute J34.3 Deviated nasal septum Acute J34.2 Asymmetric tonsils Acute J35.8 Family history of malignant neoplasm of colon Acute Z80.0 Esophageal thickening Acute K22.89 Emphysema lung Acute J43.9 Multiple lung nodules Acute R91.8 Abnormal finding on lung imaging Acute R91.8 Smoker Acute 02/05/16 F17.200 Gastroesophageal reflux Acute K21.9 Chronic obstructive lung disease Acute J44.9 Medical History Medical History Prediabetes Essential hypertension Chronic sinusitis Right lower quadrant pain Screening for cancer Headache Hx of adenomatous colonic polyps Unilateral inguinal hernia (11/22/12) Pure hypercholesterolemia Osteoarthritis (11/22/12) B/L HIP Low back pain Idiopathic scoliosis Hypercholesterolemia Smoker GERD (gastroesophageal reflux disease) COPD (chronic obstructive pulmonary disease) Surgical History Surgical History Status post cholecystectomy Repair of umbilical hernia B/L Colonoscopy - MAC (11/16/16) 2003 2006 Cholecystectomy Tobacco Smoking/Tobacco Use Status: Current every day Tobacco Type: cigarettes Alcohol Alcohol Intake: current Alcohol intake frequency: a few times a week Substance Use Substance use: Never Substance use type: does not use Vital Signs and Lab Results Vital Signs Most Recent Vital Signs in EMR: Most Recent Vital Signs Temp Pulse Resp BP Pulse Ox 36.4 C L 71 16 128/77 95 05/17/24 08:33 05/17/24 08:33 05/17/24 08:33 05/17/24 08:33 05/17/24 08:33 Lab Results Blood Type / Crossmatch: No Data to Display Complete Blood Count: No Data to Display Complete Metabolic Panel: No Data to Display Liver Function Panel: No Data to Display Coagulation Panel: No Data to Display Cardiac Panel: No Data to Display Arterial Blood Gas: No Data to Display Venous Blood Gas: No Data to Display Pancreas Panel: No Data to Display Thyroid Panel: No Data to Display Infectious Disease: No Data to Display Blood Cultures: No Data to Display Toxicology Panel: No Data to Display Anesthesia Assessment and Plan Anesthesia History Personal History: No History of Anesthesia Complications Family History: No Family History of Anesthesia Complications Exercise Tolerance Exercise Tolerance: Metabolic Equivalents>4 Pertinent Negatives Pertinent Negatives: No Symptoms of GERD Cardiac & Pulmonary Exam Cardiac Exam: Normal S1/S2 Heart Sounds Pulmonary Exam: Clear Bilateral Breath Sounds Implantable Cardiac Device Does patient have a Pacemaker or an ICD?: No Airway Exam Known Difficult Airway: No Mallampati Class: 2 Mouth Opening: Normal (> 3cm) Thyromental Distance: Greater than 3 cm Neck Range of Motion: Full ROM Neck Circumference: Normal Teeth Condition: Normal Dentition ASA Classification ASA Score: ASA 3 Emergency Case?: No NPO Status NPO Status: NPO Clears >2 hours, Solids >8 hours Anesthesia Plan Resuscitation Status: Full Code Anesthesia Technique: General Anesthesia Airway Planned: Natural Airway Monitors Used: Standard Monitors
[2024-05-17 09:56] VITALS: BMI 31.7
--- NOTE | 2024-05-17 10:06 | BOWEL_PTH ---
PATIENT: Demetrius Frey LOC: [facility] U#:[id number] AGE/SX: 68/M ROOM: RE05/17/[address]: Mat Robles MD : [id number] BED: DIS: 05/17/2024 SPEC #: [id number] RECD: 05/17/24 13:15 STATUS: [facility] #: [id number] CAROLYN: 05/17/24 10:[address]: Mat Robles DEPT: Surgical Specimen RECD BY: Lina Suh ENTERED: 05/17/24 13:16 SP TYPE: Bowel OTHR DR: Latha Colón Tissues: 1 - BIOPSY BOWEL 2 - STOMACH BIOPSY 3 - STOMACH BIOPSY 4 - STOMACH BIOPSY 5 - ESOPHAGUS BIOPSY 6 - ESOPHAGUS BIOPSY 7 - BIOPSY BOWEL 8 - BIOPSY BOWEL 9 - BIOPSY BOWEL Procedures: GROSS AND MICRO LEVEL 4 Comments: [id number]
[2024-05-17 10:46] VITALS: BP 106/65; PULSE 92; RESP 20; TEMP 36.2; O2SAT 93
--- NOTE | 2024-05-17 10:55 | W.ANESPOSTOP ---
Postoperative Evaluation Date, Time and Location Date Performed: 05/17/24 Time Performed: 10:55 Patient Location: Day Surgery Unit Vital Signs Most Recent Imported Vital Signs: Most Recent Vital Signs Temp Pulse Resp BP Pulse Ox 36.2 C L 92 H 20 106/65 93 05/17/24 10:46 05/17/24 10:46 05/17/24 10:46 05/17/24 10:46 05/17/24 10:46 Pain Score Most Recent Pain Score: Most Recent Pain Score Pain Level 0 05/17/24 10:46 Assessment Mental Status: Awake (Alert & Oriented to Patient Baseline) Airway and Respiratory Function: Patent airway with normal (patient baseline) respiratory exam Cardiovascular Function: Hemodynamically Stable Hydration Status: Adequately Hydrated Nausea & Vomiting: No Nausea or Vomiting Pain: Pt. Denies Any Pain Peripheral Nerve Block: Patient did not receive a nerve block
[2024-05-17 11:15] VITALS: BP 142/85; PULSE 66; RESP 20; TEMP 36.3; O2SAT 96
== END 2024-05-17 11:47 | disposition home or self-care (01) ==
LOC: SUR 07:48
PROVIDERS: PCP Nurse Practitioner Family; Visit Provider Surgery
PROC: (CPT 45385; principal; 2024-05-17 09:45)
DX: Z12.11 Encounter for screening for malignant neoplasm of colon (principal); K21.9 Gastro-esophageal reflux disease without esophagitis; D12.0 Benign neoplasm of cecum; K29.70 Gastritis, unspecified, without bleeding; K31.7 Polyp of stomach and duodenum; K29.80 Duodenitis without bleeding; K31.9 Disease of stomach and duodenum, unspecified; K22.89 Other specified disease of esophagus; D12.3 Benign neoplasm of transverse colon; D12.4 Benign neoplasm of descending colon
CPT/HCPCS: 45385; 45380; 43239; 88305; J2704

== ENCOUNTER 2024-06-03 01:48 | Outpatient (CLI) | payer MEDICARE, SELFPAY ==
--- NOTE | 2024-06-03 | DI.CTLCSR_ITS ---
Exam(s) CT CHEST LUNG CANCER SCREEN EXAM: CT CHEST LUNG CANCER SCREEN CLINICAL HISTORY: Screening; nicotine dependence, cigarettes, F17.210 TECHNIQUE: Imaging Protocol: Axial computed tomography images with coronal and sagittal reformatted images were created and reviewed. Low dose screening protocol. COMPARISON: CT CT CHEST LUNG CANCER SCREEN from 03/17/2020 FINDINGS: Tracheobronchial tree: No bronchiectasis or mucus plugging. Mediastinum and Jhoana: Stable small mediastinal lymph nodes. Diffuse esophageal wall thickening again noted. No focal mass or ulceration is visible. Pulmonary parenchyma: No consolidation or dominant measurable mass. Moderate emphysematous changes, g reater in the upper lobes. Bilateral upper lobe scarring.. No significant interstitial changes. Lung Nodules: Stable scattered peripheral micro nodules. Pleura: No effusion. No pneumothorax. Heart: The heart is not dilated. No coronary artery calcifications are seen. No pericardial effusion. Aorta: Thoracic aorta non-dilated. Upper abdomen: Unremarkable. Bones: Prominent osteophytes in the thoracic spine. Soft Tissues: Unremarkable. IMPRESSION: No suspicious pulmonary nodules. Lung RADS Cat 2 - Benign Appearance / Behavior: Nodules with a very low likelihood of becoming a clin ically active cancer due to size or lack of growth Lung-RADS 1.0 CATEGORIES: Category 0 - Prior chest CT exam(s) being located for comparison. Category 1 - Annual screening in 12 months. No nodules or definitely benign nodules. Category 2 - Annual screening in 12 months. Benign appearance. Nodules with low likelihood of becomin g active cancer. Category 3 - 6-month follow-up. Probably benign. Short-term follow-up suggested. Nodules with low lik elihood of becoming active cancer. Category 4A - 3-month follow-up and CT/PET if >8 mm in size. Suspicious finding. Findings which requi re additional testing. Category 4B - Findings which require additional testing and tissue sampling. Category 4X - Category 3 or 4 nodules with additional features or imaging findings that increases the suspicion of malignancy. Modifier S- Potentially clinically significant findings (non lung cancer) RADIATION DOSE DELIVERED: !Error Total DLP DATA REPOSITORY: All CT scans at this facility are submitted to the National Radiology Data Registry (NRDR) Dose Index Registry (DIR) with the [employer] (ACR). RADIATION OPTIMIZATION: All CT scans at this facility use at least one of these dose optimization te chniques: automated exposure control; mA and/or kV adjustment per patient size (includes targeted exa ms where dose is matched to clinical indication); or iterative reconstruction.
== END 2024-06-03 02:08 ==
LOC: DI 01:48
PROVIDERS: PCP Nurse Practitioner Family; Visit Provider Nurse Practitioner Family
DX: F17.210 Nicotine dependence, cigarettes, uncomplicated (principal); Z12.2 Encounter for screening for malignant neoplasm of respiratory organs; J32.8 Other chronic sinusitis; J35.8 Other chronic diseases of tonsils and adenoids
CPT/HCPCS: 71271

== ENCOUNTER 2024-06-03 01:48 | Outpatient (CLI) | payer MEDICARE, SELFPAY ==
--- NOTE | 2024-06-03 07:15 | DI.CT_ITS ---
Exam(s) CT SINUS WO EXAM: CT SINUS WO CLINICAL HISTORY: chronic sinusitis,j32.2. Evaluate for sinusitis. TECHNIQUE: Imaging Protocol: Axial computed tomography images with coronal and sagittal reformatted images were created and reviewed. COMPARISON: CT CT HEAD WO from 02/01/2024 FINDINGS: Frontal sinuses: Mild mucosal thickening. Ethmoid air cells: Opacification of several ethmoid sinuses. Maxillary sinuses: Right maxillary sinus shows mild mucosal thickening. Some mucous retention is not ed at the floor of the left maxillary sinus. Anteromedial mucous retention cyst. Sphenoid sinuses: Normally aerated. Ostiomeatal complexes: Patent. Nasal cavity: Nasal septum is deviated toward the right. Mayra bullosa of the right middle turbinat es. Visualized regional soft tissues: No acute findings. Orbits: Unremarkable. Bones: Unremarkable. Mastoid Air Cells: Normally aerated. Visualized portions of the brain: Unremarkable as visualized. IMPRESSION: Mild chronic sinus disease. RADIATION DOSE DELIVERED: Total DLP DATA REPOSITORY: All CT scans at this facility are submitted to the National Radiology Data Registry (NRDR) Dose Index Registry (DIR) with the [employer] (ACR). RADIATION OPTIMIZATION: All CT scans at this facility use at least one of these dose optimization te chniques: automated exposure control; mA and/or kV adjustment per patient size (includes targeted exa ms where dose is matched to clinical indication); or iterative reconstruction.
--- NOTE | 2024-06-03 07:21 | DI.CT_ITS ---
Exam(s) CT NECK W EXAM: CT NECK W CLINICAL HISTORY: tonsils with palpable firm asymmetry right side,J35.8. TECHNIQUE: Imaging Protocol: Axial computed tomography images with coronal and sagittal reformatted images were created and reviewed CONTRAST MATERIAL: Intravenous: Omnipaque 350 Contrast volume:100 ml contrast COMPARISON: CT CT SINUS WO from 06/03/2024 FINDINGS: Parotids: Normal. Submandibular glands: Normal. Thyroid gland: Normal. Lymph nodes: There are scattered lymph nodes seen along the level one to level three all measuring le ss than 8 mm in short axis diameter which are physiologic in nature. Carotids arteries: No significant stenosis or dissection. No significant atherosclerotic changes. Vertebral arteries: No significant stenosis or dissection. Soft tissues: There is motion at the level of the tonsils which obscures the region. No mass is visi ble however cannot be excluded.. The floor the mouth is unremarkable. The adenoids are unremarkable . The epiglottis and vocal cords are within normal limits. Lungs: Emphysematous changes and upper lobe scarring. Bones: Degenerative changes of the cervical spine. Visualized portions of the brain and orbits: Unremarkable. Sinuses and mastoids: Mild chronic sinus disease. IMPRESSION: The exam is limited by motion at the level of the tonsils. This obscures visualization of a possible mass. The patient could return for repeat imaging at no additional expense. RADIATION DOSE DELIVERED: Total DLP DATA REPOSITORY: All CT scans at this facility are submitted to the National Radiology Data Registry (NRDR) Dose Index Registry (DIR) with the [employer] (ACR). RADIATION OPTIMIZATION: All CT scans at this facility use at least one of these dose optimization te chniques: automated exposure control; mA and/or kV adjustment per patient size (includes targeted exa ms where dose is matched to clinical indication); or iterative reconstruction.
[2024-06-03 14:19] LABS: BUN 24 mg/dL (7-18); CREATININE 0.8 mg/dL (0.70-1.30)
[2024-06-03] MEDS: Omnipaque 350 MG/ML 100 ML BTL IJ (14:50)
[2024-06-03] MEDS: Normal Saline - Diluent 50 ML VIAL IJ (14:52)
== END 2024-06-03 02:08 ==
LOC: DI 01:48
PROVIDERS: PCP Nurse Practitioner Family; Visit Provider Physician Assistant
DX: J35.8 Other chronic diseases of tonsils and adenoids (principal); F17.210 Nicotine dependence, cigarettes, uncomplicated; J32.2 Chronic ethmoidal sinusitis; Z12.2 Encounter for screening for malignant neoplasm of respiratory organs
CPT/HCPCS: 70491; 84520; 70486; 82565; J3490

== ENCOUNTER 2024-06-27 02:53 | Outpatient (CLI) | payer MEDICARE, SELFPAY ==
--- NOTE | 2024-06-27 08:08 | DI.CT_ITS ---
Exam(s) CT NECK W EXAM: CT NECK W CLINICAL HISTORY: tonsils with palpable firm asymmetry right side, J35.8; smoker, F17.200.. TECHNIQUE: Imaging Protocol: Axial computed tomography images with coronal and sagittal reformatted images were created and reviewed CONTRAST MATERIAL: Intravenous: Omnipaque 350 Contrast volume:100 ml contrast COMPARISON: CT CT NECK W from 06/03/2024 FINDINGS: Parotids: Normal. Submandibular glands: Normal. Thyroid gland: Normal. Lymph nodes: There are scattered lymph nodes seen along the level one to level three all measuring le ss than 8 mm in short axis diameter which are physiologic in nature. Carotids arteries: No significant stenosis or dissection. Vertebral arteries: No significant stenosis or dissection. Soft tissues: There is asymmetry of the tonsils with mild right tonsillar enlargement. There are mult iple coarse calcifications. There is a small low-density collection measuring 11 by 7 by 8 millimeter s which does not show significant peripheral enhancement. There is no visible inflammation. Findings may represent a postinflammatory it retention cyst. The floor the mouth is unremarkable. The adenoids are unremarkable. The epiglottis and vocal cords are within normal limits. Lungs: Emphysematous changes Bones: Degenerative changes of the cervical spine. Visualized portions of the brain and orbits: Unremarkable. Sinuses and mastoids: Mucous retention again noted at the floors of the maxillary sinuses, left great er than right. Opacification of several ethmoid sinuses. IMPRESSION: Bilateral tonsillar calcifications, right greater than left. Small nonenhancing fluid collection in t he right tonsil may represent a post inflammatory retention cyst. Malignancy is not entirely excluded . RADIATION DOSE DELIVERED: Total DLP DATA REPOSITORY: All CT scans at this facility are submitted to the National Radiology Data Registry (NRDR) Dose Index Registry (DIR) with the [employer] (A[employer]). RADIATION OPTIMIZATION: All CT scans at this facility use at least one of these dose optimization te chniques: automated exposure control; mA and/or kV adjustment per patient size (includes targeted exa ms where dose is matched to clinical indication); or iterative reconstruction.
[2024-06-27] MEDS: Normal Saline - Diluent 50 ML VIAL IJ (15:01)
[2024-06-27] MEDS: Omnipaque 350 MG/ML 100 ML BTL IJ (15:02)
== END 2024-06-27 03:13 ==
LOC: DI 02:54
PROVIDERS: PCP Nurse Practitioner Family; Visit Provider Physician Assistant
DX: J35.8 Other chronic diseases of tonsils and adenoids (principal); F17.210 Nicotine dependence, cigarettes, uncomplicated
CPT/HCPCS: 70491; J3490